=== PATIENT | female | born 1995 | race Caucasian/White ===

== ENCOUNTER 2019-03-10 15:51 | Emergency (ER) | payer OTHER ==
[~2019-03-10] VITALS: Ht 157.5 cm; Wt 47.6 kg
[2019-03-10] MEDS ORDERED: AMOX-CLAV 875-1 EACH PO (17:16)
[2019-03-10] MEDS ORDERED: INTESTINEX680 M1 PO (17:16)
[2019-03-10] MEDS ORDERED: CELEBREX100 MG PO (17:16)
== END 2019-03-10 17:25 ==
LOC: ER 15:51
DX: S01.01XA Laceration without foreign body of scalp, initial encounter (principal); W19.XXXA Unspecified fall, initial encounter; Y93.89 Activity, other specified; Y92.89 Other specified places as the place of occurrence of the external cause; Y99.8 Other external cause status